=== PATIENT | female | born 1950 | race Caucasian/White ===

== ENCOUNTER 2016-10-26 22:26 | Emergency (ER) | payer MEDICAID, MEDICARE ==
[~2016-10-26] VITALS: Ht 152.4 cm; Wt 59.0 kg
[2016-10-27] MEDS ORDERED: cefTRIAXone SOD 1,000 MG VL IM ONE (00:15)
[2016-10-27 00:22] VITALS: BP 126/69
== END 2016-10-27 01:06 | disposition home or self-care (01) ==
LOC: ER 22:26 → EDBD 22:26 → ER 10-27 00:24
DX: S62.610A Displaced fracture of proximal phalanx of right index finger, initial encounter for closed fracture (principal); S61.210A Laceration without foreign body of right index finger without damage to nail, initial encounter; W23.0XXA Caught, crushed, jammed, or pinched between moving objects, initial encounter; Y93.89 Activity, other specified; Y99.8 Other external cause status; Y92.89 Other specified places as the place of occurrence of the external cause
CPT/HCPCS: 73140; 96372; 99284; J0696; J7030

== ENCOUNTER 2016-10-28 10:57 | Emergency (ER) | payer MEDICAID ==
[~2016-10-28] VITALS: Ht 152.4 cm; Wt 59.0 kg
[2016-10-28 11:15] VITALS: BP 134/85
[2016-10-28] MEDS ORDERED: BUPIVACAINE 0.25% INJ 50ML VIAL ONE (13:09)
== END 2016-10-28 13:03 | disposition left against medical advice (07) ==
LOC: ER 10:57
DX: S61.210D Laceration without foreign body of right index finger without damage to nail, subsequent encounter (principal); Z48.01 Encounter for change or removal of surgical wound dressing; Z53.21 Procedure and treatment not carried out due to patient leaving prior to being seen by health care provider
CPT/HCPCS: J3490

== ENCOUNTER 2016-10-28 15:24 | Emergency (ER) | payer MEDICAID ==
[~2016-10-28] VITALS: Ht 152.4 cm; Wt 61.2 kg
[2016-10-28 15:57] VITALS: BP 117/69
[2016-10-28] MEDS ORDERED: BACITRACIN-POLYMYXIN B TOPICAL OINT UD TOP ONE (17:15)
== END 2016-10-28 17:19 | disposition home or self-care (01) ==
LOC: ER 15:26
DX: S61.210D Laceration without foreign body of right index finger without damage to nail, subsequent encounter (principal); Z48.01 Encounter for change or removal of surgical wound dressing

== ENCOUNTER 2016-11-08 11:26 | Emergency (ER) | payer MEDICARE, MEDICAID ==
[~2016-11-08] VITALS: Ht 152.4 cm; Wt 59.0 kg
[2016-11-08 11:38] VITALS: BP 141/84
== END 2016-11-08 12:24 | disposition home or self-care (01) ==
LOC: ER 11:30
DX: S61.210D Laceration without foreign body of right index finger without damage to nail, subsequent encounter (principal); Z48.01 Encounter for change or removal of surgical wound dressing

== ENCOUNTER 2016-11-19 11:05 | Emergency (ER) | payer MEDICAID ==
[~2016-11-19] VITALS: Ht 154.9 cm; Wt 59.9 kg
[2016-11-19 12:21] VITALS: BP 121/53
== END 2016-11-19 12:54 | disposition home or self-care (01) ==
LOC: ER 11:05
DX: S61.210D Laceration without foreign body of right index finger without damage to nail, subsequent encounter (principal); Z48.02 Encounter for removal of sutures

== ENCOUNTER 2017-09-06 10:57 | Emergency (ER) | payer SELFPAY ==
[~2017-09-06] VITALS: Ht 152.4 cm; Wt 68.0 kg
[2017-09-06 11:32] VITALS: BP 124/86
== END 2017-09-06 12:51 | disposition home or self-care (01) ==
LOC: ER 10:57
DX: M19.032 Primary osteoarthritis, left wrist (principal); W22.8XXA Striking against or struck by other objects, initial encounter; Y93.89 Activity, other specified; Y99.8 Other external cause status; Y92.89 Other specified places as the place of occurrence of the external cause
CPT/HCPCS: 73110; 73130

== ENCOUNTER 2019-01-26 19:30 | Emergency (ER) | payer MEDICARE, MEDICAID ==
[~2019-01-26] VITALS: Ht 152.4 cm; Wt 59.0 kg
[2019-01-26 21:00] VITALS: BP 143/85
== END 2019-01-26 21:09 | disposition home or self-care (01) ==
LOC: ER 19:30
DX: M25.842 Other specified joint disorders, left hand (principal); D17.39 Benign lipomatous neoplasm of skin and subcutaneous tissue of other sites

== ENCOUNTER 2021-01-18 12:53 | Emergency (ER) | payer MEDICAID, MEDICARE ==
[~2021-01-18] VITALS: Ht 152.4 cm; Wt 62.1 kg
[2021-01-18 12:54] VITALS: BP 158/72
== END 2021-01-18 18:46 | disposition home or self-care (01) ==
LOC: ER 12:53
DX: T88.1XXA Other complications following immunization, not elsewhere classified, initial encounter (principal); M79.661 Pain in right lower leg
CPT/HCPCS: 93971

== ENCOUNTER 2021-04-12 14:57 | Emergency (ER) | payer MEDICARE, MEDICAID ==
[~2021-04-12] VITALS: Ht 162.6 cm; Wt 68.0 kg
[2021-04-12 16:52] LABS: Basophils # (auto) 0.1 10 ^3/uL (0-0.2); Eosinophils # (auto) 0.3 10 ^3/uL (0-0.8); Eosinophils % (auto) 3.2 % (0.0-7.0); Hematocrit 42.8 % (36.0-46.0); Hemoglobin 14.8 g/dL (12.2-16.2); Lymphocytes # (auto) 2.4 10 ^3/uL (0.4-5.4); Lymphocytes % (auto) 25.5 % (10.0-50.0); Mean Corpuscular Hemoglobin 29.9 pg (28.0-32.0); Mean Corpuscular Hgb Conc. 34.5 g/dL (32.0-36.0); Mean Corpuscular Volume 86.4 fL (80.0-100.0); Monocytes # (auto) 0.9 10 ^3/uL (0-1.3); Monocytes % (auto) 9.4 % (0.0-12.0); Neutrophils # (auto) 5.7 10 ^3/uL (1.6-8.6); Neutrophils % (auto) 60.9 % (37.0-80.0); Nucleated Red Blood Cells % 0.1 %; Red Blood Cells 4.95 10^6/uL (4.0-5.20); Red Cell Distribution Width 13.7 % (11.8-14.3); White Blood Cell 9.4 10^3/uL (4.4-10.8)
[2021-04-12 17:15] LABS: Potassium 4.3 mmol/L (3.5-5.1)
[2021-04-12 17:22] LABS: Albumin 4.1 g/dL (3.4-5.0); BUN/Creatinine Ratio 16.2; Bilirubin, Total 0.7 mg/dL (0.2-1.0); Calcium 8.8 mg/dL (8.5-10.1); Magnesium 2.5 mg/dL (1.6-2.6); Total Protein 8.2 g/dL (6.4-8.2)
[2021-04-12 17:46] VITALS: BP 163/94
== END 2021-04-12 17:47 | disposition home or self-care (01) ==
LOC: EDBD 14:57 → ER 14:57
DX: H57.12 Ocular pain, left eye (principal); Z90.49 Acquired absence of other specified parts of digestive tract
CPT/HCPCS: 36415; 70450; 80053; 83735; 85025; 85049; 93005

== ENCOUNTER 2022-05-31 08:55 | Emergency (ER) | payer MEDICAID, OTHER ==
[~2022-05-31] VITALS: Ht 154.9 cm; Wt 71.0 kg
[2022-05-31 09:47] VITALS: BP 124/89
[2022-05-31 10:24] LABS: Calcium 8.9 mg/dL (8.5-10.1); Potassium 3.8 mmol/L (3.5-5.1)
[2022-05-31 10:27] LABS: Basophils # (auto) 0.1 10 ^3/uL (0-0.2); Basophils % (auto) 0.9 % (0.0-2.0); Eosinophils # (auto) 0.2 10 ^3/uL (0-0.8); Eosinophils % (auto) 3.1 % (0.0-7.0); Hematocrit 41.7 % (36.0-46.0); Hemoglobin 13.8 g/dL (12.2-16.2); Lymphocytes % (auto) 27.8 % (10.0-50.0); Mean Corpuscular Hemoglobin 28.3 pg (28.0-32.0); Mean Corpuscular Hgb Conc. 33.2 g/dL (32.0-36.0); Mean Corpuscular Volume 85.3 fL (80.0-100.0); Monocytes # (auto) 0.5 10 ^3/uL (0-1.3); Monocytes % (auto) 6.9 % (0.0-12.0); Neutrophils # (auto) 4.3 10 ^3/uL (1.6-8.6); Neutrophils % (auto) 61.3 % (37.0-80.0); Nucleated Red Blood Cells % 0.1 %; Red Blood Cells 4.89 10^6/uL (4.0-5.20); Red Cell Distribution Width 13.9 % (11.8-14.3); White Blood Cell 7.1 10^3/uL (4.4-10.8)
[2022-05-31 10:30] LABS: Albumin 3.9 g/dL (3.4-5.0); BUN/Creatinine Ratio 21.8; Bilirubin, Total 0.6 mg/dL (0.2-1.0); Total Protein 7.6 g/dL (6.4-8.2)
[2022-05-31 11:14] LABS: Urine Bacteria MOD /hpf (None Seen); Urine Blood Negative /uL (Negative); Urine Mucus FEW (None Seen); Urine Specific Gravity 1.024 (1.001-1.035); Urine WBC 95 /hpf (0 - 5)
[2022-05-31] MEDS ORDERED: CIPR-173 PO (11:49)
[2022-05-31] MEDS ORDERED: IBUP800T27 PO (11:49)
== END 2022-05-31 11:49 | disposition left against medical advice (07) ==
LOC: ER 08:55
DX: N39.0 Urinary tract infection, site not specified (principal); K59.00 Constipation, unspecified; K83.8 Other specified diseases of biliary tract; I10 Essential (primary) hypertension; Z90.49 Acquired absence of other specified parts of digestive tract
CPT/HCPCS: 36415; 74176; 80053; 81001; 83690; 85025

== ENCOUNTER → 2023-12-24 | Outpatient (CLI) | payer MEDICAID ==
[~2023-12-24] MED LIST: CIPR-173 PO; IBUP-1456 PO
== END | disposition home or self-care (01) ==
LOC: LAB 11:04
PROVIDERS: ATTEND Student in an Organized Health Care Education/Training Program
DX: Z12.11 Encounter for screening for malignant neoplasm of colon (principal)
CPT/HCPCS: 82274